=== PATIENT | female | born 1950 | race Caucasian/White ===

== ENCOUNTER → 2018-01-13 | Outpatient (CLI) | payer OTHER, MEDICARE ==
[~2018-01-13] MED LIST: HYDROCODONE-AP1 EAC6 PO; NORCO 5-325 TA1 EACH PO; VALIUM5 MG PO
== END ==
LOC: ULTRA 12:47
DX: E04.2 Nontoxic multinodular goiter (principal); E03.9 Hypothyroidism, unspecified